=== PATIENT | female | born 1990 | race Two or more races ===

== ENCOUNTER 2023-09-15 22:55 | Observation (INO) | payer MEDICAID ==
[~2023-09-15] VITALS: Ht 162.6 cm; Wt 93.0 kg
[2023-09-16] MEDS ORDERED: PREN-96 OR (00:40)
== END 2023-09-16 01:04 | disposition home or self-care (01) ==
LOC: LDRP 22:55
PROVIDERS: ADMIT Obstetrics & Gynecology; ATTEND Obstetrics & Gynecology
DX: O21.2 Late vomiting of pregnancy (principal); O26.893 Other specified pregnancy related conditions, third trimester; R42 Dizziness and giddiness; H53.8 Other visual disturbances; Z3A.36 36 weeks gestation of pregnancy
CPT/HCPCS: 59025; 81002; 94760; 96360; G0378

== ENCOUNTER 2023-10-12 11:17 | Observation (INO) | payer MEDICAID ==
[~2023-10-12 11:17] MED LIST: MECL1TAB31 PO; PREN-96 OR; ZOFR4T PO
== END 2023-10-12 12:59 | disposition home or self-care (01) ==
LOC: UNDOADMOB 11:17 → LDRP 11:17 → UNDODISOB 12:59
PROVIDERS: ADMIT Obstetrics & Gynecology; ATTEND Obstetrics & Gynecology
DX: O48.0 Post-term pregnancy (principal); O09.523 Supervision of elderly multigravida, third trimester; O62.9 Abnormality of forces of labor, unspecified; Z3A.40 40 weeks gestation of pregnancy; Z87.891 Personal history of nicotine dependence
CPT/HCPCS: 59025; 76818; 81002; 94760; G0378

== ENCOUNTER 2023-10-14 18:58 | Observation (INO) | payer MEDICAID ==
[~2023-10-14] VITALS: Ht 165.1 cm; Wt 97.5 kg
== END 2023-10-14 21:25 | disposition home or self-care (01) ==
LOC: LDRP 18:58
PROVIDERS: ADMIT Obstetrics & Gynecology; ATTEND Obstetrics & Gynecology
DX: O48.0 Post-term pregnancy (principal); O62.9 Abnormality of forces of labor, unspecified; Z3A.40 40 weeks gestation of pregnancy; Z87.891 Personal history of nicotine dependence
CPT/HCPCS: 59025; 76818; 81002; 94760; G0378

== ENCOUNTER 2023-10-16 01:16 | Inpatient (IN) | payer MEDICAID ==
[~2023-10-16] VITALS: Ht 165.1 cm; Wt 81.6 kg
[2023-10-16] MEDS ORDERED: BUTORPHANOL TARTRATE 2 MG/1 ML VIAL IV PRN ×2 (01:45)
[2023-10-16] MEDS ORDERED: LIDOCAINE 2%HCL (LOCAL ANESTH.) INJ 20ML MDV IJ PRN (01:45)
[2023-10-16] MEDS ORDERED: ONDANSETRON HCL 4 MG/2 ML VIAL IV PRN (02:00)
[2023-10-16] MEDS: ePHEDrine SULFATE 50 MG/ML AMP IV ONE (02:00)
[2023-10-16] MEDS ORDERED: miSOPROStol 100 mcg TAB SL PRN (02:00)
[2023-10-16] MEDS ORDERED: METHYLERGONOVINE MALEATE 0.2 MG/ML AMP IM PRN (02:00)
[2023-10-16] MEDS: NALOXONE HCL 0.4 MG/ML VIAL IV ONE (02:00)
[2023-10-16] MEDS ORDERED: CARBOPROST TROMETHAMINE 250 MCG/1ML VIAL IM PRN (02:00)
[2023-10-16] MEDS ORDERED: miSOPROStol 100 mcg TAB PR PRN (02:00)
[2023-10-16 02:06] LABS: Basophils # (auto) 0 10 ^3/uL (0-0.2); Basophils % (auto) 0.3 % (0.0-2.0); Eosinophils # (auto) 0 10 ^3/uL (0-0.8); Eosinophils % (auto) 0.7 % (0.0-7.0); Hematocrit 36.8 % (36.0-46.0); Hemoglobin 12.2 g/dL (12.2-16.2); Lymphocytes # (auto) 1.4 10 ^3/uL (0.4-5.4); Lymphocytes % (auto) 20.4 % (10.0-50.0); Mean Corpuscular Hemoglobin 29.4 pg (28.0-32.0); Mean Corpuscular Hgb Conc. 33.2 g/dL (32.0-36.0); Mean Corpuscular Volume 88.7 fL (80.0-100.0); Monocytes % (auto) 14.9 % (0.0-12.0); Neutrophils # (auto) 4.3 10 ^3/uL (1.6-8.6); Neutrophils % (auto) 63.7 % (37.0-80.0); Nucleated Red Blood Cells % 0.1 %; Red Blood Cells 4.15 10^6/uL (4.0-5.20); Red Cell Distribution Width 14.6 % (11.8-14.3); White Blood Cell 6.8 10^3/uL (4.4-10.8)
[2023-10-16 02:10] LABS: Urine Bacteria NONE SEEN /hpf (None Seen); Urine Blood 2+ /uL (Negative); Urine Clarity HAZY (Clear); Urine Color Yellow (Yellow); Urine Mucus FEW (None Seen); Urine Protein, UAD 1+ (Negative); Urine Specific Gravity 1.032 (1.001-1.035); Urine WBC 8 /hpf (0 - 5); Urine pH 6.5 (5.0-8.0)
[2023-10-16 02:21] LABS: INR 0.93 (0.9-1.15); Partial Thromboplastin Time 27.5 SEC (24.5-34.5); Prothrombin Time 9.8 sec (9.3-11.8)
[2023-10-16 02:24] LABS: Amphetamine Screen, Urine Neg (NEGATIVE); Barbiturate Scree,Urine Neg (NEGATIVE); Benzodiazephine Screen, Urine Neg (NEGATIVE); Cannabinoid Screen, Urine Neg (NEGATIVE); Cocaine Screen, Urine Neg (NEGATIVE); Opiate Scree,Urine Neg (NEGATIVE); Phencyclidine Screen, Urine Neg (NEGATIVE)
[2023-10-16 02:27] LABS: Alanine Aminotransferase 26 U/L (7-40); Albumin 3.8 g/dL (3.2-4.8); Alkaline Phosphatase 161 U/L (46-116); Anion Gap 8 (5-15); Aspartate Aminotransferase 20 U/L (13-40); BUN/Creatinine Ratio 20.4 (10.0-20.0); Blood Urea Nitrogen 10 mg/dL (9-23); Calcium 9.5 mg/dL (8.7-10.4); Carbon Dioxide 22 mmol/L (20-30); Chloride 109 mmol/L (98-107); Glucose 106 mg/dL (74-106); Potassium 3.9 mmol/L (3.5-5.1); Sodium 139 mmol/L (136-145)
[2023-10-16 02:28] LABS: Bilirubin, Total 0.4 mg/dL (0.2-1.0); Total Protein 6.5 g/dL (5.7-8.2)
[2023-10-16] MEDS: LACTATED RINGER'S 1,000 ML IV SCH (05:13)
[2023-10-16] MEDS: LACTATED RINGER'S 1,000 ML IV ONE (05:13)
[2023-10-16] MEDS: DERMOPLAST 60ML BOTTLE TOP PRN (05:21)
[2023-10-16] MEDS: PHISODERM TOP SOLN 240ML BTL TOP PRN (05:21)
[2023-10-16] MEDS: WITCH HAZEL-GLYCERIN PAD TOP PRN (05:21)
[2023-10-16] MEDS: DIPHENOXYLATE W/ATROPINE 2.5 MG TAB PO SCH (10:00)
[2023-10-16 13:48] LABS: Basophils # (auto) 0 10 ^3/uL (0-0.2); Basophils % (auto) 0.1 % (0.0-2.0); Eosinophils # (auto) 0 10 ^3/uL (0-0.8); Eosinophils % (auto) 0.2 % (0.0-7.0); Hematocrit 32.5 % (36.0-46.0); Hemoglobin 10.6 g/dL (12.2-16.2); Lymphocytes # (auto) 1.2 10 ^3/uL (0.4-5.4); Lymphocytes % (auto) 11.7 % (10.0-50.0); Mean Corpuscular Hemoglobin 29.1 pg (28.0-32.0); Mean Corpuscular Hgb Conc. 32.8 g/dL (32.0-36.0); Mean Corpuscular Volume 88.7 fL (80.0-100.0); Monocytes # (auto) 0.9 10 ^3/uL (0-1.3); Monocytes % (auto) 8.8 % (0.0-12.0); Neutrophils # (auto) 8.4 10 ^3/uL (1.6-8.6); Neutrophils % (auto) 79.2 % (37.0-80.0); Red Blood Cells 3.66 10^6/uL (4.0-5.20); Red Cell Distribution Width 14.6 % (11.8-14.3); White Blood Cell 10.6 10^3/uL (4.4-10.8)
[2023-10-16] MEDS: LACT. RINGERS/OXYTOCIN 20UNITS 500 ML IV ONE ×2 (13:54→13:55)
[2023-10-16] MEDS: ROPIVACAINE HCL 200 ML ONE (13:56)
[2023-10-16 14:08] LABS: Alanine Aminotransferase 24 U/L (7-40); Albumin 3.2 g/dL (3.2-4.8); Alkaline Phosphatase 143 U/L (46-116); Anion Gap 10 (5-15); Aspartate Aminotransferase 21 U/L (13-40); Bilirubin, Total 0.3 mg/dL (0.2-1.0); Blood Urea Nitrogen 12 mg/dL (9-23); Calcium 8.6 mg/dL (8.5-10.1); Carbon Dioxide 20 mmol/L (20-30); Chloride 109 mmol/L (98-107); Glucose 113 mg/dL (74-106); Sodium 139 mmol/L (136-145)
[2023-10-16 14:10] LABS: INR 0.96 (0.9-1.15); Partial Thromboplastin Time 27.4 SEC (24.5-34.5); Prothrombin Time 10.3 sec (9.3-11.8)
[2023-10-16] MEDS ORDERED: ONDANSETRON ODT 4 MG TAB PO PRN (18:00)
[2023-10-16] MEDS: D5W/LACTATED RINGERS 1,000 ML IV ONE (19:13)
[2023-10-16 19:30] VITALS: BP 126/67; PULSE 76; RESP 16; TEMP 98.8; O2SAT 97
[2023-10-16] MEDS: DOCUSATE SOD 100 MG CAP PO SCH (22:08)
[2023-10-16] MEDS: IBUPROFEN 600 MG TAB PO PRN (22:09)
[2023-10-16 23:00] VITALS: BP 125/70; PULSE 77; RESP 20; TEMP 98.3; O2SAT 97
[2023-10-16] MEDS: ACETAMINOPHEN 325 MG TAB PO PRN (23:20)
[2023-10-17 03:00] VITALS: BP 115/73; PULSE 91; RESP 20; TEMP 98.1; O2SAT 97
[2023-10-17 07:15] VITALS: BP 109/66; PULSE 76; RESP 17; TEMP 98.4; O2SAT 98
[2023-10-17 11:00] VITALS: BP 127/74; PULSE 80; RESP 17; TEMP 97.8; O2SAT 98
[2023-10-18 07:06] LABS: RPR Non Reactive (Non Reactive)
[2023-10-19 19:06] LABS: Treponema pallidum Ab (FTA-Ab) Non Reactive (Non Reactive)
== END 2023-10-17 13:15 | disposition home or self-care (01) | DRG 560 ==
LOC: LDRP 01:16 → UNDOADMOB 01:16 → INTOOBSV 01:30 → OBSVTOIN 01:30 → LDRP 01:35
PROVIDERS: ADMIT Obstetrics & Gynecology; ATTEND Obstetrics & Gynecology
PROC: 10E0XZZ Delivery of Products of Conception, External Approach (ICD-10-PCS; principal; 2023-10-16)
PROC: 0KQM0ZZ Repair Perineum Muscle, Open Approach (ICD-10-PCS; 2023-10-16)
PROC: 3E0R3BZ Introduction of Anesthetic Agent into Spinal Canal, Percutaneous Approach (ICD-10-PCS; 2023-10-16)
PROC: 00HU33Z Insertion of Infusion Device into Spinal Canal, Percutaneous Approach (ICD-10-PCS; 2023-10-16)
PROC: 10907ZC Drainage of Amniotic Fluid, Therapeutic from Products of Conception, Via Natural or Artificial Opening (ICD-10-PCS; 2023-10-16)
DX: O70.1 Second degree perineal laceration during delivery (principal); Z37.0 Single live birth; O90.89 Other complications of the puerperium, not elsewhere classified; R55 Syncope and collapse; Z3A.40 40 weeks gestation of pregnancy
CPT/HCPCS: 36415; 59025; 59409; 62282; 71045; 80053; 80307; 81001; 81002; 82948; 82962; 85025; 85610; 85730; 86592; 86850; 86900; 86901; 93005; 94760; 96360; 96361; 96365; 96366; G0378; J2590